=== PATIENT | female | born 1930 | race Caucasian/White ===

== ENCOUNTER 2017-01-13 12:59 | Outpatient (CLI) | payer OTHER ==
--- NOTE | 2017-01-13 13:37 | DIAGNOSTIC IMAGING REPORT ---
PROCEDURE: DEXA BONE DENSITY STUDY CLINICAL INDICATION: OSTEOPENIA COMPARISON: None. FINDINGS: LUMBAR SPINE: Bone mineral density 0.904, T-score -1.3, osteopenia. LEFT HIP: Bone mineral density 0.672, T-score -2.2, osteopenia LEFT FEMORAL NECK: Bone mineral density 0.550, T-score -2.7, osteoporosis. (T score greater or equal to -1.0 to: NORMAL) (T score from -1.1 to -2.4: OSTEOPENIA) (T score ess than or equal to -2.5: OSTEOPOROSIS) IMPRESSION: 1. Lumbar spine osteopenia 2. Left hip osteoporosis
== END 2017-01-13 23:00 ==
LOC: XR SRH 12:59
DX: M85.88 Other specified disorders of bone density and structure, other site (principal); M81.8 Other osteoporosis without current pathological fracture